=== PATIENT | female | born 1965 | race Caucasian/White ===

== ENCOUNTER 2024-07-12 19:39 | Emergency (ER) | payer MEDICAID ==
[2024-07-12 19:48] VITALS: PULSE 94; RESP 18; O2SAT 100
== END 2024-07-13 00:14 | disposition left against medical advice (07) ==
LOC: ER 19:39
DX: K62.5 Hemorrhage of anus and rectum (principal); Z53.21 Procedure and treatment not carried out due to patient leaving prior to being seen by health care provider